=== PATIENT | female | born 1970 | race Caucasian/White ===

== ENCOUNTER 2025-10-03 15:25 | Inpatient (IN) | payer SELFPAY ==
[2025-10-03 16:45] VITALS: BMI 54.8
[2025-10-03] MEDS ORDERED: Senokot S 8.6-50 MG TAB PO PRN (17:42)
[2025-10-03] MEDS ORDERED: Melatonin 3 MG TAB PO PRN (17:42)
[2025-10-03] MEDS: Furosemide 20 MG (2 mL) VIAL SLOW IVP SCH (18:15)
[2025-10-03 18:23] LABS: Troponin I 0.077 ng/mL (< 0.028)
[2025-10-03 18:31] LABS: Magnesium 1.9 mg/dL (1.6-2.6)
[2025-10-03 21:31] LABS: Troponin I 0.078 ng/mL (< 0.028)
[2025-10-03] MEDS: Enoxaparin 60 MG (0.6 mL) SYRINGE SC SCH (23:17)
[2025-10-03] MEDS: Enoxaparin 80 MG (0.8 mL) SYRINGE SC SCH (23:18)
[2025-10-04] MEDS: Diltiazem HCl/D5W 125 MG in Premix 1 BAG IVPB SCH (03:20)
[2025-10-04 05:12] LABS: #Basophils 0.04 10x3/uL (0.0-0.2); #Eosinophils 0.18 10x3/uL (0.0-0.5); #Monocytes 0.69 10x3/uL (0.0-1.1); #Neutrophils 6.22 10x3/uL (1.5-8.4); %Basophils 0.5 % (0.0-2.0); %Eosinophils 2.2 % (0.0-6.0); %Lymphocytes 13.7 % (18.0-47.0); %Monocytes 8.3 % (0.0-10.0); %Neutrophils 74.8 % (40.0-75.0); Hematocrit 35.7 % (34.9-44.5); Hemoglobin 10.7 g/dL (12.0-15.5); Mean Corpuscular Hemoglobin 22.4 pg (27.0-33.0); Mean Corpuscular Volume 74.7 fL (81.6-98.3); Platelet Count 289 10x3/uL (150-450); Red Blood Cell (RBC) Count 4.78 10x6/uL (3.90-5.03); White Blood Cell (WBC) Count 8.31 10x3/uL (3.5-10.5)
[2025-10-04 05:16] LABS: ALT (SGPT) 46 U/L (Less than 34); AST (SGOT) 31 U/L (11-34); Albumin 3.3 g/dL (3.1-4.5); Alkaline Phosphatase 82 U/L (40-110); Anion Gap 12 mmol/L (10-20); BUN (Urea Nitrogen) 15 mg/dL (9.8-20.1); Bilirubin, Total 1.0 mg/dL (0.3-1.2); Calc. Creatinine Clearance 158 mL/min (70-130); Calcium 8.9 mg/dL (7.8-10.44); Carbon Dioxide 29 mmol/L (22-29); Chloride 99 mmol/L (98-107); Globulin 3.6 g/dL (2.4-3.5); Glucose 127 mg/dL (70-105); Potassium 3.1 mmol/L (3.5-5.1); Sodium 137 mmol/L (136-145)
[2025-10-04 09:22] LABS: Magnesium 1.9 mg/dL (1.6-2.6)
[2025-10-04] MEDS: Enoxaparin 80 MG (0.8 mL) SYRINGE SC SCH (10:13)
[2025-10-04] MEDS: Enoxaparin 60 MG (0.6 mL) SYRINGE SC SCH (10:13)
[2025-10-04] MEDS ORDERED: Metoprolol Tartrate 5 MG (5 mL) VIAL IVP PRN (10:17)
[2025-10-04] MEDS: Ferrous Sulfate 325 MG TAB PO SCH (13:00)
[2025-10-04] MEDS: Carvedilol 25 MG TAB PO SCH (16:59)
[2025-10-04] MEDS: Acetaminophen 325 MG TAB PO PRN (16:59)
[2025-10-05] MEDS: Ondansetron PF 4 MG/2 ML Vial IVP PRN (03:50)
[2025-10-05 05:17] LABS: Anion Gap 14 mmol/L (10-20); BUN (Urea Nitrogen) 18 mg/dL (9.8-20.1); Calc. Creatinine Clearance 165 mL/min (70-130); Calcium 8.7 mg/dL (7.8-10.44); Carbon Dioxide 26 mmol/L (22-29); Chloride 100 mmol/L (98-107); Glucose 137 mg/dL (70-105); Potassium 3.6 mmol/L (3.5-5.1); Sodium 136 mmol/L (136-145)
[2025-10-05 07:37] LABS: #Basophils 0.03 10x3/uL (0.0-0.2); #Eosinophils 0.13 10x3/uL (0.0-0.5); #Monocytes 0.61 10x3/uL (0.0-1.1); #Neutrophils 3.42 10x3/uL (1.5-8.4); %Basophils 0.5 % (0.0-2.0); %Eosinophils 2.3 % (0.0-6.0); %Lymphocytes 26.0 % (18.0-47.0); %Monocytes 10.7 % (0.0-10.0); %Neutrophils 60.0 % (40.0-75.0); Hematocrit 34.2 % (34.9-44.5); Hemoglobin 10.3 g/dL (12.0-15.5); Mean Corpuscular Hemoglobin 22.3 pg (27.0-33.0); Mean Corpuscular Volume 74.2 fL (81.6-98.3); Platelet Count 252 10x3/uL (150-450); Red Blood Cell (RBC) Count 4.61 10x6/uL (3.90-5.03); White Blood Cell (WBC) Count 5.70 10x3/uL (3.5-10.5)
[2025-10-05] MEDS: Lisinopril 20 MG TAB PO SCH (09:39)
[2025-10-05] MEDS: Digoxin 0.5 MG/2 ML AMP SLOW IVP SCH (11:37)
[2025-10-05] MEDS: Furosemide 20 MG TAB PO SCH (11:37)
[2025-10-05] MEDS: Digoxin 0.5 MG/2 ML AMP SLOW IVP ONE (17:22)
[2025-10-06 06:45] LABS: Anion Gap 12 mmol/L (10-20); BUN (Urea Nitrogen) 20 mg/dL (9.8-20.1); Calc. Creatinine Clearance 134 mL/min (70-130); Calcium 8.6 mg/dL (7.8-10.44); Carbon Dioxide 28 mmol/L (22-29); Cardiac Risk 4.2 (Less than 4.5); Chloride 100 mmol/L (98-107); Cholesterol 100 mg/dl (< 200 Desired); Glucose 157 mg/dL (70-105); HDL Cholesterol 24 mg/dL (>60 Neg Risk); Iron 24 ug/dL (50-170); Iron Binding Capacity, Total 363 mcg/dL (265-497); LDL Cholesterol, Calculated 57 mg/dL; Potassium 3.6 mmol/L (3.5-5.1); Sodium 136 mmol/L (136-145); Triglycerides 94 mg/dL (Less than 150)
[2025-10-06] MEDS ORDERED: IRON SUCROSE COMPLEX 100 MG/5 ML SLOW IVP SCH (07:30)
[2025-10-06] MEDS: Digoxin 0.25 MG TAB PO SCH (08:35)
[2025-10-06] MEDS: Furosemide 40 MG TAB PO SCH (08:35)
[2025-10-06 12:21] VITALS: BP 113/79; TEMP 97.6
== END 2025-10-06 14:32 | disposition home or self-care (01) | DRG 309 ==
LOC: CSHTELE 15:25
PROVIDERS: ADMIT Internal Medicine; ATTEND Family Medicine
DX: I48.91 Unspecified atrial fibrillation (principal); I50.32 Chronic diastolic (congestive) heart failure; I5A Non-ischemic myocardial injury (non-traumatic); Z68.43 Body mass index [BMI] 50.0-59.9, adult; D25.9 Leiomyoma of uterus, unspecified; R55 Syncope and collapse; E78.5 Hyperlipidemia, unspecified; G43.909 Migraine, unspecified, not intractable, without status migrainosus; M79.7 Fibromyalgia; I11.0 Hypertensive heart disease with heart failure; E87.5 Hyperkalemia; D50.9 Iron deficiency anemia, unspecified; I78.0 Hereditary hemorrhagic telangiectasia; E66.01 Morbid (severe) obesity due to excess calories; R73.9 Hyperglycemia, unspecified; Z86.73 Personal history of transient ischemic attack (TIA), and cerebral infarction without residual deficits; Z90.49 Acquired absence of other specified parts of digestive tract; Z90.710 Acquired absence of both cervix and uterus; Z98.51 Tubal ligation status; Z98.890 Other specified postprocedural states; Z98.891 History of uterine scar from previous surgery
CPT/HCPCS: 36415; 76856; 80048; 80053; 80061; 82728; 83036; 83540; 83550; 83735; 85025; 93306; 93976; 94760; J1160; J1650; J1940; J2405; J2916